=== PATIENT | female | born 1980 | race Caucasian/White ===

== ENCOUNTER 2023-08-01 10:23 | Emergency (ER) | payer OTHER ==
[2023-08-01] MEDS: Acetaminophen 325 MG Tab PO ONE (11:43)
[2023-08-01] MEDS: oxyCODONE 5 MG Tab PO ONE (11:44)
[2023-08-01] MEDS: Bacitracin/Neomycin/Polymyxin B Oint 0.9 GM U/D Packet TOP ONE (12:10)
[2023-08-01 12:51] VITALS: BP 122/83; PULSE 76
== END 2023-08-01 12:48 | disposition home or self-care (01) ==
LOC: LL.ED 10:23
DX: S67.21XA Crushing injury of right hand, initial encounter (principal); I50.9 Heart failure, unspecified; F17.210 Nicotine dependence, cigarettes, uncomplicated; Z90.49 Acquired absence of other specified parts of digestive tract; Z79.899 Other long term (current) drug therapy; Z88.2 Allergy status to sulfonamides; Z88.0 Allergy status to penicillin; Z88.5 Allergy status to narcotic agent; Z88.4 Allergy status to anesthetic agent; W20.8XXA Other cause of strike by thrown, projected or falling object, initial encounter
CPT/HCPCS: 73130-RT; 99283; A9270-GY